=== PATIENT | male | born 1945 | race Caucasian/White ===

== ENCOUNTER 2022-12-07 19:51 | Inpatient (IN) | payer MEDICARE, BC ==
[~2022-12-07] VITALS: Ht 180.3 cm; Wt 76.7 kg
--- NOTE | 2022-12-07 20:10 | NUR ---
Patient placed in room 2B at this time. Dr Saini into eval patient.
--- NOTE | 2022-12-07 20:25 | NUR ---
PT"S ACCU CHECK DONE WITH BS - 126. AWARE.
--- NOTE | 2022-12-07 20:45 | NUR ---
H/L INSERTED , # 20 IN R FA.
[2022-12-07 20:48] LABS: MEAN CORPUSCULAR HEMOGLOBIN 26.6 uug (23.8-33.4); MEAN CORPUSCULAR VOLUME 80.7 fL (73.0-96.2); PLATELET COUNT (AUTO) 161 K/uL (152-348)
[2022-12-07] MEDS ORDERED: repatha SUBCUT (20:50)
[2022-12-07] MEDS ORDERED: METF-440 PO (20:50)
[2022-12-07] MEDS ORDERED: blood thinner PO (20:50)
[2022-12-07] MEDS ORDERED: METO50TA7 PO (20:50)
--- NOTE | 2022-12-07 20:50 | NUR ---
Tele Neurology Dr Chau Solorzano speaking with patient via Tele stroke robot.
[2022-12-07] MEDS ORDERED: ASPIRIN 325 MG TABLET PO ONE (21:00)
[2022-12-07 21:01] LABS: CARBON DIOXIDE 30 mmol/L (21-32); CHLORIDE 102 mmol/L (98-107); CREATININE 1.3 mg/dL (0.6-1.3); GLUCOSE 124 mg/dL (74-106); POTASSIUM 4.5 mmol/L (3.5-5.1); UREA NITROGEN, BLOOD 21 mg/dL (7-18)
[2022-12-07 21:06] LABS: BILIRUBIN,DIRECT 0.2 mg/dL (0.0-0.2); BILIRUBIN,TOTAL 0.5 mg/dL (0.2-1.0); TOTAL PROTEIN, SERUM 8.5 g/dL (6.4-8.2)
[2022-12-07] MEDS ORDERED: ASPIRIN 325 MG TABLET ONE (21:11)
[2022-12-07] MEDS ORDERED: IV NORMAL SALINE 250 ML IV ONE (21:12)
[2022-12-07] MEDS ORDERED: IOHEXOL 350 100 ML INFUS..BTL ONE (21:12)
[2022-12-07] MEDS ORDERED: SWABABLE VALVE TRANSFER SET EA MC ONE (21:12)
--- NOTE | 2022-12-07 21:25 | NUR ---
PT AMB TO CT WITH STEADY GAIT, FOR CT ANGIO.
--- NOTE | 2022-12-07 21:55 | NUR ---
PT AMB TO BR WITH STEADY GAIT. PT VOIDED.
--- NOTE | 2022-12-07 22:45 | NUR ---
[facility] CALLED FOR PANEL CALL.
--- NOTE | 2022-12-07 22:45 | NUR ---
Rehana olvera in [facility] - 12/07/22 at 2253 by SANDIE SUSI MONTENEGRO FOR DARIEN MARTINEZ.
--- NOTE | 2022-12-08 02:30 | NUR ---
ATTEMPTED TO CALL REPORT. SPOKE WITH KRYSTIAN. SHE SAID THE RN WOULD CALL RIGHT BACK AFTER HER BREAK.
--- NOTE | 2022-12-08 03:10 | NUR ---
PT A,A AND O X 4 WITH NO CP AND ALL DEFFICITS RESOLVED FROM THE TIA. Pt. admitted to [facility] , under care of Dr. Nisreen ESPINOZA Belongs List completed.
[2022-12-08] MEDS ORDERED: REMEDY ESSENTIAL ZINC PASTE 113 GM TP PRN (05:00)
[2022-12-08] MEDS ORDERED: ONDANSETRON 4 MG/2 ML VIAL IV PRN (05:00)
[2022-12-08] MEDS ORDERED: ACETAMINOPHEN 325 MG TABLET PO PRN (05:00)
[2022-12-08] MEDS ORDERED: MAGNESIUM HYDROXIDE 30 ML LIQUID UDC PO PRN (05:00)
--- NOTE | 2022-12-08 05:10 | NUR ---
Admitted a 77 years old male with Dx of TIA. Patient AAOx4. In no acute distress. Denies any pain or SOB. NIHHS assessment done with score of 0. Nursing swallow eval. done and no dysphagia noted. IV site on right FA intact and patent. NSR on tele with HR 72/min. Routine admission care done. Plan of care initiated. Safety measure initiated and call light within reached.
[2022-12-08 05:13] VITALS: BP 143/64
--- NOTE | 2022-12-08 07:30 | NUR ---
Telemetry Nursing Notes: Patient awake in bed, verbally responsive with clear speech, denies pain or discomforts, no S/S of distress, NIHHS assessment done score of 0, able to swallow with no problems. IV site on right FA intact and patent. NSR on tele with HR 72/min. Routine admission care done. Plan of care initiated. Safety measure initiated and call light within reached.
[2022-12-08] MEDS: METOPROLOL SUCCINATE XL 50 MG TAB.SR.24H PO SCH (09:20)
[2022-12-08] MEDS: CLOPIDOGREL 75 MG TABLET PO SCH (09:20)
[2022-12-08] MEDS: ASPIRIN EC 81 MG TABLET.DR PO SCH (09:20)
[2022-12-08] MEDS ORDERED: LISINOPRIL 10 MG TABLET PO SCH (10:15)
[2022-12-08] MEDS: RAMIPRIL 5 MG CAPSULE PO SCH (11:15)
[2022-12-08 12:00] VITALS: BP 147/80
--- NOTE | 2022-12-08 14:17 | NUR ---
Telemetry notes: Per FURNACE DOOR TENDER, order for MRI Stat, MRI Screening done, per patient has a cardiac stent x 15 years ago, reported to electroencephalographic technologist. Called out patient Shuttle Final Inspector Dr Rashid, , who placed stent. Spoke with Karley, alumni secretary will fax the report.
[2022-12-08] MEDS ORDERED: CLOP75TA15 PO (15:16)
[2022-12-08] MEDS ORDERED: EVOL140P3 SQ (15:16)
[2022-12-08] MEDS ORDERED: RAMI10CA69 PO (15:20)
[2022-12-08 16:00] VITALS: BP 136/73
[2022-12-08] MEDS ORDERED: DEXTROSE 50% 50 ML DISP.SYRIN IV PRN (16:15)
[2022-12-08] MEDS: BLOOD SUGAR DIAGNOSTIC 1 EACH STRIP VI SCH ×2 (16:45→20:11)
[2022-12-08] MEDS: INSULIN REGULAR, HUMAN 300 UNIT/3 ML VIAL SQ PRN ×2 (17:15→20:12)
--- NOTE | 2022-12-08 18:20 | NUR ---
Telemetry Nurses note: Patient is calm, quiet, cooperative, speech is clear and coherent, patient denies pain or discomforts, denies any numbness, no facial droop noted. NHHS =0, physician practice manager is SR =72,. MRI will be done tomorrow in AM per Yoseph at [facility], family member aware. Fall and safety precautions implemented, emotional support provided. Will continue to monitor.
--- NOTE | 2022-12-08 18:26 | NUR ---
Telemetry nursing notes: Patient on blood sugar check AC/HS, blood sugar at [id number], patient refused Insulin SQ.
--- NOTE | 2022-12-08 18:34 | NUR ---
Telemetry note: Patient to have MRI today, per Yoseph, body technician just called, lead slot technician spoke with Huma De La Fuente.
--- NOTE | 2022-12-08 19:54 | NUR ---
Received patient lying in bed. at bedside. AAOX4. In no apparent distress. Denies any pain or SOB. NIH-0. NSR on tele with HR of 71/min. IV site on right FA intact and patent. Needs assessed and attended to. Awaiting for p/u for MRI at [facility]. Safety measure initiated and call light within reached.
[2022-12-08 20:00] VITALS: BP 146/69
--- NOTE | 2022-12-08 20:13 | NUR ---
Patient finger stick blood sugar [id number]. Patient refusing insulin per sliding scale. Requesting to have his metformin. Informed RADIUS CORNER MACHINE OPERATOR Sonal. Per Thania, not to give any Metformin for the next 24-48 hours incase contrast needs to be done. Informed patient and states understanding.
--- NOTE | 2022-12-08 20:34 | NUR ---
Patient picked up by [facility] ambulance #[id number] accompanied by 2 paramedics via gurney. For transport to [facility] for MRI.
[2022-12-08] MEDS ORDERED: ATORVASTATIN 40 MG TABLET PO SCH (21:00)
--- NOTE | 2022-12-08 21:14 | NUR ---
Patient at [facility] for MRI. Addendum: 12/08/22 at 2114 by CELINA MOLINA RN Amended: Links added.
--- NOTE | 2022-12-08 21:38 | NUR ---
Patient back from MRI at [facility] ambulance #[id number]. Also accompanied by patient and son. Patient AAOX4. In no acute distress. Denies any pain or SOB. NSR on tele with HR of 73/min. Continue to monitor.
--- NOTE | 2022-12-08 21:59 | NUR ---
Telephone call from [facility] MRI spoke to Patrick and stated MRI Result: + for small acute to subacute ischemia at the left pericentral gyrus. Informed HAND CANDLE MOLDER Ke of the result with no new order given, stated neuro and vascular following.
[2022-12-09] VITALS: BP 143/71
[2022-12-09 04:00] VITALS: BP 145/68
--- NOTE | 2022-12-09 05:50 | NUR ---
Slept well through out the night. In no acute distress. No complain of pain or SOB. NIHHS remains 0. Needs attended to and met. Safety measure maintained and call light within reached.
[2022-12-09] MEDS: BLOOD SUGAR DIAGNOSTIC 1 EACH STRIP VI SCH ×3 (06:34→16:39)
[2022-12-09] MEDS: INSULIN REGULAR, HUMAN 300 UNIT/3 ML VIAL SQ PRN ×3 (06:34→17:09)
[2022-12-09 07:03] LABS: HEMATOCRIT 42.3 % (36.7-47.1); MEAN CORPUSCULAR HEMOGLOBIN 26.3 uug (23.8-33.4); MEAN CORPUSCULAR VOLUME 81.2 fL (73.0-96.2); PLATELET COUNT (AUTO) 134 K/uL (152-348)
[2022-12-09 07:25] LABS: CARBON DIOXIDE 27 mmol/L (21-32); CHLORIDE 105 mmol/L (98-107); CHOLESTEROL 130 mg/dL (<200); CREATININE 1.1 mg/dL (0.6-1.3); GLUCOSE 163 mg/dL (74-106); HDL CHOLESTEROL 36 mg/dL (40-60); POTASSIUM 4.4 mmol/L (3.5-5.1); TRIGLYCERIDES 290 MG/DL (30-150); UREA NITROGEN, BLOOD 23 mg/dL (7-18)
--- NOTE | 2022-12-09 08:00 | NUR ---
AWAKE ALERT AND ORIENTED X3, DENIES CHEST PAIN OR SOB, SR ON MONITOR. UP AND ABOUT IN ROOM WITH NO C/O DIZZINESS OR HEADACHE. CLOSELY MONITORED
[2022-12-09] MEDS ORDERED: CLOPIDOGREL 75 MG TABLET PO SCH (09:00)
[2022-12-09] MEDS: ASPIRIN EC 81 MG TABLET.DR PO SCH (09:22)
[2022-12-09] MEDS: CLOPIDOGREL 75 MG TABLET PO SCH (09:22)
[2022-12-09] MEDS: METOPROLOL SUCCINATE XL 50 MG TAB.SR.24H PO SCH (09:24)
[2022-12-09] MEDS: RAMIPRIL 5 MG CAPSULE PO SCH (09:24)
[2022-12-09 11:41] VITALS: BP 149/66
--- NOTE | 2022-12-09 12:30 | NUR ---
SEEN BY NEURO DOUGH MIXING MACHINE OPERATOR FOR FOLLOW-UP RECOMMEND VASCULAR NEURO TO FOLLOW-UP PATIENT BEFORE DISCHARGE. Dilia [facility] AWARE. SEE NOTES
[2022-12-09 15:49] VITALS: BP 145/56
--- NOTE | 2022-12-09 16:26 | NUR ---
STILL WAITING FOR DR CONWAY FOR FURTHER MANAGEMENT
--- NOTE | 2022-12-09 18:27 | NUR ---
DISCHARGED HOME STABLE WITH INSTRUCTION TO FOLLOW-UP WITH PCP AND NEURO VASCULAR IN 1 WEEK.
[2022-12-09] MEDS ORDERED: ASPI-618 PO (20:01)
[2022-12-09] MEDS ORDERED: RAMI5CAP30 PO (20:01)
[2022-12-09] MEDS ORDERED: CLOP75TA33 PO (20:01)
== END 2022-12-09 18:25 | disposition home or self-care (01) | DRG 66 ==
LOC: ER 19:51 → TELE3 22:40
PROVIDERS: ADMIT Nurse Practitioner Acute Care; ATTEND Nurse Practitioner Acute Care
DX: I63.9 Cerebral infarction, unspecified (principal); R47.01 Aphasia; G83.21 Monoplegia of upper limb affecting right dominant side; Z95.1 Presence of aortocoronary bypass graft; I25.10 Atherosclerotic heart disease of native coronary artery without angina pectoris; R29.701 NIHSS score 1; I65.03 Occlusion and stenosis of bilateral vertebral arteries; I10 Essential (primary) hypertension; Z95.5 Presence of coronary angioplasty implant and graft; E11.9 Type 2 diabetes mellitus without complications; E78.5 Hyperlipidemia, unspecified; Z79.84 Long term (current) use of oral hypoglycemic drugs; Z79.02 Long term (current) use of antithrombotics/antiplatelets; Z79.899 Other long term (current) drug therapy
CPT/HCPCS: 36415; 70450; 70496; 70551; 71045; 83735; 84100; 84443; 84484; 85025; 85730; 93005; 93307; A4663; G0378; J1815; Q9967